=== PATIENT | female | born 1995 | race Caucasian/White ===

== ENCOUNTER 2020-02-12 02:56 | Emergency (ER) | payer MEDICAID ==
[~2020-02-12] VITALS: Ht 162.6 cm; Wt 56.8 kg
[2020-02-12 03:16] VITALS: BP 110/70
== END 2020-02-12 03:36 | disposition home or self-care (01) ==
LOC: ER 02:58
DX: R20.2 Paresthesia of skin (principal)
CPT/HCPCS: 99281